=== PATIENT | female | born 2005 | race Hispanic/Latino ===

== ENCOUNTER 2023-03-04 22:29 | Emergency (ER) | payer SELFPAY ==
[2023-03-04 23:27] LABS: Bilirubin Neg (Negative); Blood, Urine 10 (Negative); Clarity Clear (Clear); Glucose, Urine (Dipstick) Normal (Negative); Ketone, Urine Negative (Negative); Leukocyte 25 (Negative); Nitrite Negative (Negative); Protein, Urine (Dipstick) Negative (Neg-Trace); Specific Gravity, Urine 1.025 (1.005-1.030); Urobilinogen Normal mg/dL (Less than 2)
[2023-03-04 23:44] LABS: CAUTI Indications for Culture Pelvic or flank pain; RBC/HPF 0-3 HPF (0-3); Squamous Epithelial 0-3 HPF (0-3); WBC/HPF 0-3 HPF (0-3)
[2023-03-04 23:45] LABS: Bacteria/HPF None Seen HPF (None Seen); Urine Culture Reflex No No
[2023-03-04] MEDS ORDERED: Acetaminophen 500 MG TAB ONE (23:55)
[2023-03-05 15:22] LABS: Chlamydia by PCR, Vaginal Swab Not Detected (NotDetected); GC by PCR, Vaginal Swab Not Detected (NotDetected); Tric.vaginalis PCR,Vaginal Sw Not Detected (NotDetected)
== END 2023-03-05 02:53 | disposition home or self-care (01) ==
LOC: CSHERS 22:29
DX: O41.8X11 Other specified disorders of amniotic fluid and membranes, first trimester, fetus 1 (principal); Z3A.01 Less than 8 weeks gestation of pregnancy
CPT/HCPCS: 36415; 76856; 81001; 84702; 86900; 86901; 87480; 87491; 87510; 87591; 87660; 87661; 99283

== ENCOUNTER 2023-05-30 09:51 | Emergency (ER) | payer SELFPAY ==
[2023-05-30 11:36] LABS: #Monocytes 0.4 10x3/uL (0.0-1.1); #Neutrophils 10.9 10x3/uL (1.5-8.4); %Basophils 0.2 % (0.0-2.0); %Eosinophils 0.1 % (0.0-6.0); %Lymphocytes 9.4 % (18.0-47.0); %Monocytes 2.9 % (0.0-10.0); Hematocrit 35.6 % (34.9-44.5); Hemoglobin 12.2 g/dL (12.0-15.5); Mean Corpuscular HGB CONC 34.3 g/dL (32.0-36.0); Mean Corpuscular Hemoglobin 29.6 pg (27.0-33.0); Mean Corpuscular Volume 86.4 fl (81.6-98.3); Mean Platelet Volume 9.8 fl (7.4-10.4); Platelet Count 303 10x3/uL (150-450); RBC Distribution Width 12.5 % (11.5-14.5); Red Blood Cell (RBC) Count 4.12 10x6/uL (3.90-5.03); White Blood Cell (WBC) Count 12.6 10x3/uL (3.5-10.5)
[2023-05-30 11:42] LABS: ALT (SGPT) 44 U/L (8-55); AST (SGOT) 22 U/L (5-30); Albumin 3.9 g/dL (3.5-5.0); Alkaline Phosphatase 64 U/L (40-100); Anion Gap 14 mmol/L (10-20); BUN (Urea Nitrogen) 6 mg/dL (8.4-21.0); Bilirubin, Total 0.3 mg/dL (0.2-1.2); Calc. Creatinine Clearance 0 mL/min (70-130); Calcium 9.2 mg/dL (7.8-10.44); Carbon Dioxide 20 mmol/L (22-29); Chloride 105 mmol/L (98-107); Estimated GFR 135; Globulin 3.5 g/dL (2.4-3.5); Glucose 98 mg/dL (70-105); Potassium 4.1 mmol/L (3.5-5.1); Protein, Total 7.4 g/dL (6.0-8.3); Sodium 135 mmol/L (136-145)
[2023-05-30 13:34] LABS: Bilirubin Neg (Negative); Blood, Urine Negative (Negative); Clarity Clear (Clear); Glucose, Urine (Dipstick) Normal (Negative); Ketone, Urine Negative (Negative); Leukocyte Negative (Negative); Nitrite Negative (Negative); Protein, Urine (Dipstick) Negative (Neg-Trace); Urobilinogen Normal mg/dL (Less than 2)
[2023-05-30 13:56] LABS: CAUTI Indications for Culture Pregnancy; RBC/HPF None Seen HPF (0-3); Squamous Epithelial 0-3 HPF (0-3); WBC/HPF 0-3 HPF (0-3)
[2023-05-30 13:57] LABS: Bacteria/HPF 2+ HPF (None Seen); Urine Culture Reflex Yes Yes
== END 2023-05-30 14:12 | disposition home or self-care (01) ==
LOC: CSHERS 09:51
DX: O99.612 Diseases of the digestive system complicating pregnancy, second trimester (principal); K92.9 Disease of digestive system, unspecified; Z3A.18 18 weeks gestation of pregnancy
CPT/HCPCS: 36415; 76705; 80053; 81001; 85025; 87086